=== PATIENT | female | born 1940 | race Caucasian/White ===

== ENCOUNTER 2022-05-18 15:23 | Inpatient (IN) | payer OTHER, MEDICAID ==
[~2022-05-18] VITALS: Ht 157.5 cm; Wt 58.7 kg
--- NOTE | 2022-05-18 15:32 | NUR ---
Placed in room 02 . Placed on cosmetic surgeon, blood pressure machine and pulse oximeter. To gown for exam. Side rails up.
[2022-05-18 15:33] VITALS: BP_SYST 120
[2022-05-18] MEDS ORDERED: ASPIRIN 81 MG TAB.CHEW PO ONE (15:45)
[2022-05-18 16:19] LABS: BASOPHILS % (AUTO) 0.3 % (0.0-2.0); EOSINOPHILS # (AUTO) 0.1 K/uL (0.0-0.4); EOSINOPHILS % (AUTO) 1.8 % (0.0-4.0); HEMATOCRIT 36.5 % (36-48); HEMOGLOBIN 12.1 g/dL (12.0-16.0); LYMPHOCYTES # (AUTO) 1.9 K/uL (1.0-5.5); LYMPHOCYTES % (AUTO) 25.7 % (20.5-51.5); MEAN CORPUSCULAR HEMOGLOBIN 27 pg (27-31); MEAN CORPUSCULAR HGB CONC 33 % (32-36); MEAN CORPUSCULAR VOLUME 82 fL (79.0-98.0); MONOCYTES # (AUTO) 0.7 K/uL (0.0-1.0); MONOCYTES % (AUTO) 9.1 % (1.7-9.3); NEUTROPHILS # (AUTO) 4.6 K/uL (1.8-7.7); NEUTROPHILS % (AUTO) 63.1 % (40.0-70.0); PLATELET COUNT (AUTO) 222 K/uL (130-430); RED BLOOD CELL COUNT(AUTO) 4.46 MIL/uL (4.2-6.2); RED CELL DISTRIBUTION WIDTH 16.2 % (9.0-15.0); WHITE BLOOD COUNT (AUTO) 7.2 K/uL (4.8-10.8)
[2022-05-18 16:40] LABS: ANION GAP 12 (5-15); CALCIUM 8.5 mg/dL (8.4-11.0); CHLORIDE 100 mmol/L (98-107); GLUCOSE 177 mg/dL (70-99); POTASSIUM 3.6 mmol/L (3.5-5.1); UREA NITROGEN, BLOOD 16 mg/dL (8-21)
[2022-05-18 16:49] LABS: ALANINE AMINOTRANSFERASE 14 U/L (12-78); ALBUMIN 3.5 g/dL (3.4-4.8); ASPARTATE AMINOTRANSFERASE 11 U/L (10-37); TOTAL BILIRUBIN 0.4 mg/dL (0.0-1.0)
--- NOTE | 2022-05-18 16:57 | NUR ---
Patient evaluated by MD. RN spoke with daughter who brought patient to ED and got a list of her medications. Patient has a picture of POLST form; to have other sister bring it to hospital. patient removed mother's bra and took it home with her. Patient placed on O@ and meds given. Awaiting MD reevaluation at this time.
[2022-05-18] MEDS ORDERED: LIP40 PO (19:26)
--- NOTE | 2022-05-18 19:42 | NUR ---
Received report from KAHLIL Gerard; assuming care of patient at this time.
--- NOTE | 2022-05-18 19:42 | NUR ---
Gave report to oncoming RN. Patient currently with stable BP and heart rate. Patient to be admitte shortly.
--- NOTE | 2022-05-18 19:50 | NUR ---
Patient resting comfortably in bed with side rails raised and safety procautions in place. Patient's daughter at bedside. Nad noted at this time.
--- NOTE | 2022-05-18 19:58 | NUR ---
DEMOND SWABBED AND SENT TO LAB
[2022-05-18] MEDS ORDERED: DIGO125T PO (20:11)
[2022-05-18] MEDS ORDERED: ESCI10TA PO (20:11)
[2022-05-18] MEDS ORDERED: PARO-41 PO (20:11)
[2022-05-18] MEDS ORDERED: QUET50TA PO (20:11)
[2022-05-18] MEDS ORDERED: LASI20 IVP (20:11)
[2022-05-18] MEDS ORDERED: DILT-113 PO (20:11)
[2022-05-18] MEDS ORDERED: LISI-209 PO (20:11)
[2022-05-18] MEDS ORDERED: APIX5TAB4 PO (20:11)
[2022-05-18] MEDS ORDERED: NEU300 PO (20:11)
[2022-05-18] MEDS ORDERED: METO-542 PO (20:11)
--- NOTE | 2022-05-18 21:16 | NUR ---
Admit bed requested Patient will be admitted to care of Admitted to Telemetry unit. Diagnosis Chest pain, Bradycardia Inpatient (Yes or No) yes Observation (Yes or No) no Orientation concerns or request close to nursing station (Yes or No) yes Covid Status negative On vent or bipap no Isolation requirements no Needs a sitter no From Home (Yes or if No enter name of facility) yes Requires Dialysis (Yes or No) no Med Rec Completed (Yes of No) yes
--- NOTE | 2022-05-18 21:45 | NUR ---
Patient is resting comfortably in bed with side rails raised. Nad noted at this time.
--- NOTE | 2022-05-18 22:15 | NUR ---
Patient will be admitted to care of Dr Lima. Admitted to Tele unit. Will go to room 132C. Belongings list completed. Complete and up to date summary report printed. SBAR report given to KAHLIL Ventura at bedside with opportunity for questions.
[2022-05-18] MEDS: APIXABAN 2.5 MG TABLET PO SCH (22:52)
--- NOTE | 2022-05-18 22:52 | NUR ---
CONSULTATION PAGED/CALLED Reason for Consultation: BRADYCARDIA Person Who was Notified: WAQAR Consulting Physician: KRISTIN Foreign Car Mechanic Specialty: Ordering Physician: ANGÉLICA
--- NOTE | 2022-05-18 22:53 | NUR ---
ADMISSION NOTE Received patient from ER via gurney. Patient admitted with diagnosis of CHEST PAIN, BRADYCARDIA. Patient is awake, alert, oriented X 2. Patient oriented to hospital room, call light, toileting, pain management and safety-teach back done. Patient informed that their room number is 132C. Personal belongings checked and Belongings List documented. Call light within reach.
[2022-05-18 23:05] VITALS: BP_SYST 121
--- NOTE | 2022-05-19 00:23 | NUR ---
Pt has low HR in the 30s not sustaining, informed Dr Li. New order given of theophylline 200mg BID
[2022-05-19] MEDS ORDERED: THEOPHYLLINE ANHYDROUS 200 MG TAB.SR.12H PO ONE (00:30)
[2022-05-19 01:42] VITALS: BP_SYST 113
[2022-05-19] MEDS ORDERED: ATROPINE SULFATE 1 MG/10 ML SYRINGE IVP ONE (01:45)
--- NOTE | 2022-05-19 02:05 | NUR ---
HEART RATE: Atropine 0.5 mg given ordered by Dr Li due to theophylline not available. HR now in 60s-70s
[2022-05-19 06:23] LABS: ANION GAP 10 (5-15); CALCIUM 8.4 mg/dL (8.4-11.0); CHLORIDE 99 mmol/L (98-107); CREATININE 1.01 mg/dL (0.55-1.30); GLUCOSE 170 mg/dL (70-99); POTASSIUM 3.8 mmol/L (3.5-5.1); UREA NITROGEN, BLOOD 18 mg/dL (8-21)
--- NOTE | 2022-05-19 06:42 | NUR ---
Closing note Pt resting in bed, eyes closed. No s/s of acute distress. HR in the 40s-50s, has not dropped in the 30s since atropine was given. Fall and safety checks in place with bed in lowest position, bed alarm on, and call light within reach
[2022-05-19 06:44] LABS: ALANINE AMINOTRANSFERASE 9 U/L (12-78); ALBUMIN 3.5 g/dL (3.4-4.8); ASPARTATE AMINOTRANSFERASE 12 U/L (10-37); FREE T4 (FREE THYROXINE) 1.1 ng/dl (0.8-1.5); TOTAL BILIRUBIN 0.5 mg/dL (0.0-1.0)
--- NOTE | 2022-05-19 07:33 | NUR ---
MORNING ROUNDS: PATIENT AWAKE BUT CONFUSED,TURKMEN SPEAKING LADY. BEDSIDE REPORT GIVEN BY NIGHT NURSE PRECILLA.BED ALARM ON. SAFETY MEASURES RENDERED.
--- NOTE | 2022-05-19 07:34 | NUR ---
RN NOTES: PATIENT TRIED GETTING OUT FROM BED.SHE IS CALLING HER DAUGHTER'S NAME. PATIENT PUT BACK TO BED AND WAS CALM THIS TIME. BED ALARM ON. CONTINUE TO MONITOR.
[2022-05-19 08:00] VITALS: BP_SYST 128
[2022-05-19 08:10] LABS: BASOPHILS % (AUTO) 0.6 % (0.0-2.0); EOSINOPHILS # (AUTO) 0.2 K/uL (0.0-0.4); EOSINOPHILS % (AUTO) 2.4 % (0.0-4.0); HEMATOCRIT 36.3 % (36-48); HEMOGLOBIN 12.1 g/dL (12.0-16.0); LYMPHOCYTES # (AUTO) 2.4 K/uL (1.0-5.5); LYMPHOCYTES % (AUTO) 32.4 % (20.5-51.5); MEAN CORPUSCULAR HEMOGLOBIN 27 pg (27-31); MEAN CORPUSCULAR HGB CONC 33 % (32-36); MEAN CORPUSCULAR VOLUME 82 fL (79.0-98.0); MONOCYTES # (AUTO) 0.7 K/uL (0.0-1.0); MONOCYTES % (AUTO) 9.3 % (1.7-9.3); NEUTROPHILS # (AUTO) 4.1 K/uL (1.8-7.7); NEUTROPHILS % (AUTO) 55.3 % (40.0-70.0); PLATELET COUNT (AUTO) 218 K/uL (130-430); RED BLOOD CELL COUNT(AUTO) 4.44 MIL/uL (4.2-6.2); RED CELL DISTRIBUTION WIDTH 16.3 % (9.0-15.0); WHITE BLOOD COUNT (AUTO) 7.3 K/uL (4.8-10.8)
[2022-05-19] MEDS ORDERED: ESCITALOPRAM OXALATE 10 MG TABLET PO SCH (09:00)
[2022-05-19] MEDS ORDERED: DIGOXIN 0.125 MG TABLET PO SCH (09:00)
[2022-05-19] MEDS: ATORVASTATIN 20 MG TABLET PO SCH (09:48)
[2022-05-19] MEDS: APIXABAN 2.5 MG TABLET PO SCH ×2 (09:50→20:32)
[2022-05-19] MEDS: lisinopriL 5 MG TABLET PO SCH (09:51)
[2022-05-19] MEDS: FUROSEMIDE 20 MG/2 ML VIAL IVP SCH (09:52)
[2022-05-19] MEDS: THEOPHYLLINE ANHYDROUS 200 MG TAB.SR.12H PO SCH ×2 (09:56→20:32)
[2022-05-19] MEDS: CITALOPRAM HYDROBROMIDE 20 MG TABLET PO SCH (09:58)
[2022-05-19] MEDS ORDERED: MAGNESIUM SULFATE 4 GM in D5W 250 ML IV ONE (10:30)
--- NOTE | 2022-05-19 11:30 | NUR ---
BRP with assist: Daughter Libby and Rn assisted patient to the toilet,weak not steady. Had a bm and assisted back to her bed.
[2022-05-19 11:54] LABS: CHOLESTEROL 159 mg/dL (<200); HDL CHOLESTEROL 62 mg/dL (>55); LDL CHOLESTEROL 73 mg/dL (<100); TRIGLYCERIDES 208 mg/dL (30-150)
[2022-05-19 12:36] VITALS: BP_SYST 103
--- NOTE | 2022-05-19 15:30 | NUR ---
IV BEEPING: INSERTED ANOTHER IV AT RIGHT WRIST USING G#22,MAGNESIUM RIDER CONTINUE ORDERED.
[2022-05-19 16:30] VITALS: BP_SYST 109
[2022-05-19] MEDS ORDERED: MEGESTROL ACETATE 400 MG/10 ML UDC PO ONE (17:00)
--- NOTE | 2022-05-19 17:30 | NUR ---
URINE SAMPLE: STRAIGHT CATHETER RENDERED AND OBTAINED CLEAN CATCH URINE ORDERED FOR URINALYSIS TEST AND SEND TO LAB.
[2022-05-19 18:18] LABS: BILIRUBIN,URINE NEGATIVE (NEGATIVE); BLOOD, URINE 3+ (NEGATIVE); COLOR,URINE YELLOW (YELLOW); GLUCOSE,URINE TRACE (NEGATIVE); KETONES,URINE NEGATIVE (NEGATIVE); LEUKOCYTE ESTERASE ,URINE NEGATIVE (NEGATIVE); NITRITE, URINE NEGATIVE (NEGATIVE); PROTEIN URINE NEGATIVE (NEGATIVE); UROBILINOGEN,URINE 0.2 (0.2-1.0)
--- NOTE | 2022-05-19 18:30 | NUR ---
EVENING ROUNDS: PATIENT ATE HER DINNER WELL. NO ACUTE DISTRESS. BED LOCKED AT LOWEST POSITION. SAFETY MEASURES RENDERED.
[2022-05-19 18:36] LABS: CLARITY/URINE HAZY (CLEAR)
[2022-05-19 18:40] LABS: BACTERIA,URINE None Seen /HPF (None Seen); MUCUS,URINE None Seen /LPF (None Seen); RBC,URINE >100 /HPF (0-3); WBC,URINE 0-3 /HPF (0-3)
--- NOTE | 2022-05-19 19:10 | NUR ---
Received report from KAHLIL Webster and assumed patient care.
--- NOTE | 2022-05-19 19:45 | NUR ---
Educated the patient about the plan of care, and how to utilize the call light via [employer] due to language barrier. Patient showed attention during education, however unable to comprehend if patient understood teaching. Will reinforce if needed throughout the shift. Patient's bed alarm is in place, bed is in lowest position, and call light is within reach. Will continue to monitor throughout the shift.
[2022-05-19 20:00] VITALS: BP_SYST 122
[2022-05-19] MEDS ORDERED: QUEtiapine FUMARATE 25 MG TABLET PO SCH (21:00)
[2022-05-19] MEDS ORDERED: MIRTAZAPINE 15 MG TABLET PO SCH (21:00)
[2022-05-20] VITALS: BP_SYST 92
--- NOTE | 2022-05-20 | NUR ---
Vital signs were performed, patient is sleeping, no complications noted during the process. Will reinforce if needed throughout the shift.
[2022-05-20 04:00] VITALS: BP_SYST 109
--- NOTE | 2022-05-20 05:15 | NUR ---
RT at bedside to perform EKG, no complications noted during the process. Will reinforce if needed throughout the shift.
[2022-05-20 06:44] LABS: BASOPHILS # (AUTO) 0.1 K/uL (0.0-0.2); BASOPHILS % (AUTO) 0.6 % (0.0-2.0); EOSINOPHILS # (AUTO) 0.1 K/uL (0.0-0.4); EOSINOPHILS % (AUTO) 1.1 % (0.0-4.0); HEMATOCRIT 35.8 % (36-48); LYMPHOCYTES # (AUTO) 1.9 K/uL (1.0-5.5); LYMPHOCYTES % (AUTO) 24.8 % (20.5-51.5); MEAN CORPUSCULAR HEMOGLOBIN 28 pg (27-31); MEAN CORPUSCULAR HGB CONC 34 % (32-36); MEAN CORPUSCULAR VOLUME 82 fL (79.0-98.0); MONOCYTES # (AUTO) 0.9 K/uL (0.0-1.0); MONOCYTES % (AUTO) 11.3 % (1.7-9.3); NEUTROPHILS # (AUTO) 4.9 K/uL (1.8-7.7); NEUTROPHILS % (AUTO) 62.2 % (40.0-70.0); PLATELET COUNT (AUTO) 202 K/uL (130-430); RED BLOOD CELL COUNT(AUTO) 4.35 MIL/uL (4.2-6.2); RED CELL DISTRIBUTION WIDTH 15.8 % (9.0-15.0); WHITE BLOOD COUNT (AUTO) 7.8 K/uL (4.8-10.8)
--- NOTE | 2022-05-20 07:35 | NUR ---
MORNING ROUNDS: PATIENT FAST ASLEEP DURING ROUNDS. IV SALINE LOCK AT RIGHT WRIST INTACT.CALL LIGHT WITH IN REACH.BED LOCKED AT LOWEST POSITION.BED ALARM ON. NOT IN ANY RESPIRATORY DISTRESS.
[2022-05-20 07:58] LABS: ANION GAP 14 (5-15); CALCIUM 8.5 mg/dL (8.4-11.0); CHLORIDE 99 mmol/L (98-107); CREATININE 1.12 mg/dL (0.55-1.30); GLUCOSE 223 mg/dL (70-99); POTASSIUM 4.2 mmol/L (3.5-5.1); UREA NITROGEN, BLOOD 22 mg/dL (8-21)
[2022-05-20 08:00] VITALS: BP_SYST 143
[2022-05-20] MEDS: ATORVASTATIN 20 MG TABLET PO SCH (08:59)
[2022-05-20] MEDS: APIXABAN 2.5 MG TABLET PO SCH (09:00)
[2022-05-20] MEDS ORDERED: MEGESTROL ACETATE 400 MG/10 ML UDC PO SCH (09:00)
[2022-05-20] MEDS: FUROSEMIDE 20 MG/2 ML VIAL IVP SCH (09:02)
[2022-05-20] MEDS: THEOPHYLLINE ANHYDROUS 200 MG TAB.SR.12H PO SCH (09:02)
[2022-05-20] MEDS: CITALOPRAM HYDROBROMIDE 20 MG TABLET PO SCH (09:02)
[2022-05-20] MEDS: lisinopriL 5 MG TABLET PO SCH (09:03)
--- NOTE | 2022-05-20 09:35 | NUR ---
PO MEDS: PATIENT TOLERATED ALL HER PO MEDS,WITH NO PROBLEM.
--- NOTE | 2022-05-20 12:30 | NUR ---
LUNCH: PATIENT SITUATED DURING LUNCH.PATIENT HAD A GOOD LUNCH.
[2022-05-20 12:49] VITALS: BP_SYST 118
--- NOTE | 2022-05-20 15:30 | NUR ---
WEAN FROM O2: ROOM AIR O2 SATURATION=90%. NO DISTRESS.
[2022-05-20] MEDS ORDERED: FLU VACC QS2022-23(6MOS UP)/PF 0.5 ML/SYR SYRINGE I.M. ONE (15:45)
[2022-05-20] MEDS ORDERED: DIGOXIN 0.125 MG TABLET PO ONE (16:15)
[2022-05-20 16:26] VITALS: BP_SYST 114
--- NOTE | 2022-05-20 16:28 | NUR ---
Discharge Planning: DCP faxed pt referral to [facility] [phone] DCP to follow up
[2022-05-20 17:00] VITALS: BP_SYST 114
--- NOTE | 2022-05-20 17:55 | NUR ---
D/C Patient Patient's daughter given medication reconciliation form and D/C instructions. Exit Care provided. Patient's daughter Libby verbalized understanding. MD discussed with patient's daughter the results and treatment provided. Delicatessen Department Manager wheeled patient to the front lobby. Patient in stable condition, ID band removed. IV catheter removed, intact and 4x4 dressing applied, no active bleeding. Patient's daughter educated on pain management. All belongings sent with patient.Patient's daughter Libby drive patient home in stable condition.
== END 2022-05-20 17:55 | disposition home health service (06) | DRG 308 ==
LOC: SED 15:23 → STU 18:44
PROVIDERS: ADMIT Internal Medicine; ATTEND Internal Medicine
PROC: 3E0234Z Introduction of Serum, Toxoid and Vaccine into Muscle, Percutaneous Approach (ICD-10-PCS; principal; 2022-05-20)
DX: R00.1 Bradycardia, unspecified (principal); I50.43 Acute on chronic combined systolic (congestive) and diastolic (congestive) heart failure; F02.811 Dementia in other diseases classified elsewhere, unspecified severity, with agitation; I11.0 Hypertensive heart disease with heart failure; I48.20 Chronic atrial fibrillation, unspecified; Z20.822 Contact with and (suspected) exposure to COVID-19; G30.9 Alzheimer's disease, unspecified; E78.5 Hyperlipidemia, unspecified; E83.42 Hypomagnesemia; Z87.81 Personal history of (healed) traumatic fracture; Z86.73 Personal history of transient ischemic attack (TIA), and cerebral infarction without residual deficits; T46.1X5A Adverse effect of calcium-channel blockers, initial encounter
CPT/HCPCS: 36415; 71045; 80048; 80053; 80061; 80162; 81000; 83735; 83880; 84439; 84443; 84484; 85025; 93005; 93306; 99285; G0378; J0461; J1940; J3475; J7060